=== PATIENT | female | born 1960 | race African-American/Black ===

== ENCOUNTER → 2017-09-26 | Day surgery (SDC) | payer OTHER ==
[~2017-09-26] VITALS: Ht 162.6 cm; Wt 89.8 kg
[~2017-09-26] MED LIST: ALBUTEROL0.09 MG/A1 INH; ASPI-COR81 M1 PO; BYSTOLIC5 MG PO; CARAFATE1 GM/10 ML PO; CLARITIN10 MG PO; DIOVAN 40 MG40 MG PO; ERGOCALCIFER50000 IU PO; GLUCOPHAGE500 MG PO; GLYBURIDE5 MG PO; HYDROCHLOROTH12.5 MG PO; LEVOTHYROXIN0.112 MG PO; LIPITOR 10MG10 MG PO; LORAZEPAM0.5 MG PO; METOPROLOL SUCC25 MG PO; MOMETASONE0.05 MG/Ac NASB; PLAVIX 75MG TAB75 MG PO; PRANDIN PO; PROTONIX 40MG T40 MG PO; RANEXA 500MG500 MG PO; RANITIDINE75 MG PO; SIMVASTATIN40 MG PO; SYNTHROID0.025 MG PO; THERA-D 20002000 IU PO; TYLENOL #31 TAB PO; VICTOZA6 MG/ML; VICTOZA6 MG/ML SC; VITAMIN C BUFF500 MG PO; VITAMIN D31000 IU PO; ZANTAC 150MG150 MG PO; ZOFRAN ODT4 MG PO
[2017-09-26 07:59] LABS: ABSOLUTE BASOPHIL COUNT 0 /CUMM (0.0-0.2); ABSOLUTE EOSINOPHIL COUNT 0.1 /CUMM (0.0-0.7); ABSOLUTE LYMPH COUNT 1.6 /CUMM (1.2-3.4); ABSOLUTE MONOCYTE COUNT 0.6 /CUMM (0.10-0.60); BASOPHIL % 0.4 % (0.0-2.0); EOSINOPHIL % 1.6 % (0-5); GRANULOCYTE % 71.4 % (42.2-75.2); HEMATOCRIT 34.3 % (37-47); MEAN CORPUSCULAR HGB 26.5 PG (27.0-31.0); MEAN CORPUSCULAR HGB CONC 32.9 G/DL (33.0-37.0); MEAN CORPUSCULAR VOLUME 80.7 FL (81.0-99.0); MEAN PLATELET VOLUME 8.9 FL (7.4-10.4); PLATELET COUNT 209 /CUMM (130-400); RBC DISTRIBUTION WIDTH 15.3 % (11.5-14.5); RED BLOOD CELL CT 4.24 /CUMM (4.20-5.40); WHITE BLOOD CELL COUNT 8.4 /CUMM (4.8-10.8)
--- NOTE | 2017-09-26 10:37 | Operative Report ---
Operative/Inv Procedure Report Surgery Date: 09/26/17 Name of Procedure: 1. Drainage of complex wound seroma 2. Intermediate closure, 3 cm Pre-Operative Diagnosis: Chronic seroma Post-Operative Diagnosis: Same Estimated Blood Loss: scant Surgeon/Chemical Blender: Victor Hugo BAILEY,Cordell Bloom Anesthesia: local monitored anesthesi Microbiology: Fluid for culture Operative Indication: 57-year-old woman with chronic seroma related to standard open ventral hernia repair with underlay mesh. Recent CT shows an intact hernia repair with fluid collection above the fascia. I offered her needle drainage but she requests operative drainage. Operative/Procedure Note Note: After consent she is brought to the operating room laid supine. Sedation was obtained and her abdomen was prepped and draped. The periumbilical skin was infiltrated with a cocktail local anesthesia. A curvilinear superior leaf based incision was made through pre-existing scar. Subcutaneous tissues tissues were dissected with cautery. We entered the seroma cavity which consisted of old proteinaceous blood products. A specimen sent for culture. The remainder was suction irrigated. The seroma cavity was left intact. The umbilical stock was re-created 3-0 Vicryl. Wound was then closed in 2 layers of 3-0 and 4-0 Vicryl sutures. CC: Renee Sánchez DO
== END ==
LOC: STS 02:46
PROVIDERS: Surgery
DX: L76.34 Postprocedural seroma of skin and subcutaneous tissue following other procedure (principal); T14.8XXA Other injury of unspecified body region, initial encounter; E11.65 Type 2 diabetes mellitus with hyperglycemia; E03.9 Hypothyroidism, unspecified; I10 Essential (primary) hypertension; E66.9 Obesity, unspecified; Z68.34 Body mass index [BMI] 34.0-34.9, adult; Z79.84 Long term (current) use of oral hypoglycemic drugs
CPT/HCPCS: 87070; 87075; 36415; 93005; 93010; J0131; J0690; J1100; J2250; J2405

== ENCOUNTER 2017-09-30 18:21 | Emergency (ER) | payer OTHER ==
[~2017-09-30] VITALS: Ht 167.6 cm; Wt 81.6 kg
--- NOTE | 2017-09-30 19:15 | ED GENERAL ADULT ---
History of Present Illness General Chief Complaint: General Adult Stated Complaint: HIGH BP 212/108 Source: patient, family Exam Limitations: no limitations Vital Signs & Intake/Output Vital Signs & Intake/Output Vital Signs Date Time Temp Pulse Resp B/P B/P Pulse O2 O2 Flow FiO2 Mean Ox Delivery Rate 09/30 2238 98.4 88 18 144/80 100 Room Air 10/01 2043 98.3 61 18 124/82 99 Room Air 10/01 2031 96 Room Air 09/30 1841 98.9 78 18 162/96 98 Room Air ED Intake and Output 10/01 0000 09/30 1200 Intake Total 0 Output Total Balance 0 Intake, IV 0 Patient 180 lb Weight Weight Reported by Patient Measurement Method Allergies Coded Allergies: shellfish derived (Severe, HIVES 02/13/17) valsartan (Severe, ANGIODEMA 09/25/17) patient denies allergy Egg Derived (EGG WHITE - ALLERGY TESTED 09/25/17) dapagliflozin (From [facility]) (unknown 09/25/17) hydrocodone (UPSET STOMACH 10/08/15) kiwi (itchy 09/25/17) lactase (gi 09/25/17) metformin (diahrrea 09/25/17) metoprolol (SWELLING 10/08/15) shrimp (? 02/13/17) oxycodone (UPSET STOMACH 10/08/15) Reconcile Medications Albuterol Sulfate (Albuterol Sulfate Hfa) 0.09 MG/Actuation ISMAEL 2 PUFF INH Q4- 6 PRN PRN SHORTNESS OF BREATH (Reported) 90 MCG PER PUFF Aspirin (Aspi-Cor) 81 MG CTB 1 TAB PO DAILY HEART (Reported) Atorvastatin (Atorvastatin Calcium) 10 MG TABLET 1 TAB PO DAILY CHOLESTEROL ( Reported) CHOLECALCIFEROL (VITAMIN D3) (Thera-D) 2,000 UNIT TABLET 1 TAB PO DAILY BONE HEALTH (Reported) Clopidogrel Bisulfate (Plavix) 75 MG TABLET 1 TAB PO DAILY STENT (Reported) Levothyroxine Sodium (Levothyroxine) 0.112 MG TAB 1 TAB PO DAILY HYPOTHYROID (Reported) Loratadine (Claritin) 10 MG TAB 1 TAB PO DAILY ALLERGIES (Reported) Lorazepam 0.5 MG TABLET 1 TAB PO DAILY PRN ANXIETY (Reported) Metformin Hydochloride (Glucophage) 500 MG TABLET 1 TAB PO BID DIABETES ( Reported) Mometasone Furoate (Nasonex) 0.05 MG/Actuation SPR 2 SPRAY NASB DAILY ALLERGIES (Reported) Nebivolol Hydrochloride (Bystolic) 5 MG TAB 1 TAB PO DAILY HEART (Reported) Pantoprazole Sodium (Protonix) 40 MG TABLET.DR 1 TAB PO DAILY HEARTBURN Repaglinide (Prandin 1MG TAB) 1 MG TABLET 1 TAB PO 4 TIMES/DAY DIABETES ( Reported) Triage Note: 57F S/P HERNIA SURGERY 5 DAYS AGO DEVELOPED HEADACHE YESTERDAY AND CHECKED BP TODAY AND FOUND IT TO BE 212/108. DENIES VISION CHANGES. TOOK ALL BP MEDS TODAY. BP 162/96 MANUALLY IN TRIAGE, BRACHIAL PULSE WITH REG RATE/RHYTHM. DENIES CP/SOB, SLIGHT NAUSEA. NO FOCAL NEURO DEFICITS Triage Nurses Notes Reviewed? yes Onset: Gradual Duration: constant Timing: recent history Injury Environment: home Severity: moderate Severity Numbers: 5 : No HPI: Patient is a 57 -year-old female with a past medical history of non-insulin- requiring diabetes mellitus, coronary artery disease, status post drug-eluting stents to LAD and RCA placed in 2009 ON [place], GERD, hypothyroidism, seasonal allergies/asthma who 4 days ago is status post laparoscopic drainage of a complex seroma of a ventral hernia performed by surgeon Dr. Gay patient states that for the past 2 days she's developed gradual onset of headache and nasal congestion and shortness of breath. Patient also was concerned of blood pressure and she states that "every time I get the symptoms by blood pressure is high" noted blood pressure prior to arrival was 200/100 Patient denies any fever or chills blurred vision visual acuity changes neck pain chest pain arm pain jaw pain nausea or vomiting leg swelling Hemoptysis (Zan GONZALEZ,Karl) Past History Travel History Traveled to [place] past 21 day No Medical History Any Pertinent Medical History? see below for history Neurological: NONE EENT: allergies Cardiovascular: CAD (s/p PCI x 2), hypertension, hyperlipidemia Respiratory: asthma Gastrointestinal: GERD, HERNIA REPAIR Hepatic: NONE Renal: NONE Musculoskeletal: osteoarthritis Psychiatric: anxiety Endocrine: diabetes ([id number]), hypothyroidism (status post thyroidectomy), vitamin D deficiency History of MRSA: No History of VRE: No History of CDIFF: No Tetanus Vaccine: 03/25/14 Surgical History Surgical History: appendectomy, cholecystectomy, hysterectomy (with bilateral oophorectomy), thyroidectomy Psychosocial History Who do you live with Family Services at Home None What is your primary language Estonian Tobacco Use: Never used Family History Family History, If Any: MOTHER (HTN, DM, Stroke). FATHER ( at age of 51, had DM and possibly CO). . BROTHER (CKD). Hx Contributory? No (Karl Bernard) Review of Systems Review of Systems Constitutional: Reports: no symptoms, see HPI. Denies: chills, fever. EENTM: Reports: see HPI. Respiratory: Reports: see HPI, short of breath. Denies: cough. Cardiovascular: Reports: see HPI. Denies: chest pain, palpitations, peripheral edema. GI: Reports: see HPI. Denies: abdominal pain, nausea, vomiting. Genitourinary: Reports: no symptoms. Musculoskeletal: Reports: no symptoms. Skin: Reports: no symptoms. Neurological/Psychological: Reports: see HPI, headache. Hematologic/Endocrine: Reports: no symptoms. Immunologic/Allergic: Reports: no symptoms. All Other Systems: Reviewed and Negative (Karl Bernard) Physical Exam Physical Exam General Appearance: no apparent distress, alert, comfortable Head: atraumatic Eyes: Bilateral: normal appearance, PERRL, EOMI. 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 Yes CVA/TIA Diagnosis: No Sepsis Present: No Sepsis Focused Exam Completed? No (Karl Bernard) Progress Differential Diagnoses I considered the following diagnoses in my evaluation of the patient: [ Hypertensive urgency hypertension anxiety pulmonary embolism myocardial infarction pneumothorax hemothorax pneumonia sinusitis] Initial ED EKG: normal intervals, normal p-waves, normal QRS complex, NSR 67 BPM Hand-Off Endorsed To: Palma BAILEY,Andrea Ortiz Endorsed Time: 2249 Pending: CT, EKG, Xray Comments: PATIENT: HARISH YOUNG PRESENT AGE: 57 PATIENT ACCOUNT NO: [id number] : 61 LOCATION: [facility] ORDERING PHYSICIAN: Karl GONZALEZ SERVICE DATE: 09/30/17 EXAM TYPE: CAT - CTA CHEST-PULMONARY EMBOLISM EXAMINATION: CT ANGIOGRAM OF THE CHEST WITH AND WITHOUT CONTRAST (CT PULMONARY ANGIOGRAM FOR PE) CLINICAL INFORMATION: Elevated d-dimer. Shortness of breath. COMPARISON: None TECHNIQUE: Prior to contrast administration, noncontrast localization images were obtained. Subsequently, multidetector volumetric imaging was performed from the thoracic inlet to below the diaphragms following the administration of 94 mL Optiray 320 intravenous contrast. No contrast reaction reported. Sagittal, coronal, and MIP oblique sagittal reformatted images were obtained on the CT workstation, uploaded to PACS, and reviewed. Total exam dose-length product 497 mGy-cm. FINDINGS: QUALITY OF STUDY/CONTRAST BOLUS: Satisfactory PULMONARY ARTERIES: No central or segmental pulmonary emboli. THORACIC AORTA: No aneurysm or dissection. LUNG: No consolidation suspicious for pneumonia or pulmonary edema. No dominant suspicious pulmonary nodule. PLEURA: No pleural effusion or pneumothorax. MEDIASTINUM: Normal heart size. There is coronary artery calcification. No pericardial effusion. No hilar or mediastinal lymphadenopathy. No evidence of septal bowing or right heart strain. CHEST WALL/AXILLA: No axillary or internal mammary lymphadenopathy. OSSEOUS STRUCTURES: No acute osseous abnormalities. UPPER ABDOMEN: Cholecystectomy clips. No reflux of contrast into the hepatic veins to suggest elevated right heart pressures. IMPRESSION: 1. No pulmonary embolism. 2. No evidence of pneumonia or pulmonary edema. 3. Coronary artery calcification. VTE: Negative DICTATED BY: Case Butler MD DATE/TIME DICTATED:09/30/172237 PRICING CLERK:VIDAL (Zan GONZALEZ,Karl) Plan of Care: Orders Procedure Date/time Status TROPONIN LEVEL 09/30 2329 Active EKG 09/30 2329 Active Telemetry/Cook Vegetable 09/30 1930 Active TROPONIN LEVEL 09/30 1930 Complete D-DIMER 09/30 1930 Complete COMPREHENSIVE METABOLIC PANEL 09/30 1930 Complete CBC WITHOUT DIFFERENTIAL 09/30 1930 Complete EKG 09/30 1930 Active Laboratory Tests 09/30/17 2011: Anion Gap 12, Estimated GFR > 60, BUN/Creatinine Ratio 15.0, Glucose 169 H, Calcium 9.4, Total Bilirubin 0.6, AST 29, ALT 34, Alkaline Phosphatase 58, Troponin I < 0.01, Total Protein 8.0, Albumin 4.7, Globulin 3.3, Albumin/ Globulin Ratio 1.4, D-Dimer High Sensitivty 343 H, CBC w Diff NO MAN DIFF REQ, RBC 4.69, MCV 81.4, MCH 25.7 L, MCHC 31.6 L, RDW 15.8 H, MPV 9.5, Gran % 61.1 , Lymphocytes % 25.4, Monocytes % 7.5, Eosinophils % 5.6 H, Basophils % 0.4, Absolute Granulocytes 5.7, Absolute Lymphocytes 2.4, Absolute Monocytes 0.7 H, Absolute Eosinophils 0.5, Absolute Basophils 0 Patient upon initial presentation was resting comfortably bedside patient did have elevated blood pressure however after reexamination of the patient 2049 patient's blood pressure is now normotensive recent denies any current symptoms EKG was unremarkable patient has not had chest pain symptoms Patient will receive a second set of cardiac enzymes at 0 due to past medical history of drug-eluting stents and CAD HX DISCUSSED HAND OFF WITH DR WALDROP SECOND EKG, TROPONIN PENDING. (Zan GONZALEZ,Karl) Diagnostic Imaging: Viewed by Me: CT Scan. Discussed w/RAD: CT Scan. Radiology Impression: PATIENT: HARISH YOUNG PRESENT AGE: 57 PATIENT ACCOUNT NO: [id number] : 62 LOCATION: [facility] ORDERING PHYSICIAN: Karl GONZALEZ SERVICE DATE: 09/30/17 EXAM TYPE: CAT - CTA CHEST-PULMONARY EMBOLISM EXAMINATION: CT ANGIOGRAM OF THE CHEST WITH AND WITHOUT CONTRAST (CT PULMONARY ANGIOGRAM FOR PE) CLINICAL INFORMATION: Elevated d-dimer. Shortness of breath. COMPARISON: None TECHNIQUE: Prior to contrast administration, noncontrast localization images were obtained. Subsequently, multidetector volumetric imaging was performed from the thoracic inlet to below the diaphragms following the administration of 94 mL Optiray 320 intravenous contrast. No contrast reaction reported. Sagittal, coronal, and MIP oblique sagittal reformatted images were obtained on the CT workstation, uploaded to PACS, and reviewed. Total exam dose-length product 497 mGy-cm. FINDINGS: QUALITY OF STUDY/CONTRAST BOLUS: Satisfactory PULMONARY ARTERIES: No central or segmental pulmonary emboli. THORACIC AORTA: No aneurysm or dissection. LUNG: No consolidation suspicious for pneumonia or pulmonary edema. No dominant suspicious pulmonary nodule. PLEURA: No pleural effusion or pneumothorax. MEDIASTINUM: Normal heart size. There is coronary artery calcification. No pericardial effusion. No hilar or mediastinal lymphadenopathy. No evidence of septal bowing or right heart strain. CHEST WALL/AXILLA: No axillary or internal mammary lymphadenopathy. OSSEOUS STRUCTURES: No acute osseous abnormalities. UPPER ABDOMEN: Cholecystectomy clips. No reflux of contrast into the hepatic veins to suggest elevated right heart pressures. IMPRESSION: 1. No pulmonary embolism. 2. No evidence of pneumonia or pulmonary edema. 3. Coronary artery calcification. VTE: Negative DICTATED BY: Case Butler MD DATE/TIME DICTATED: 09/30/172237 PRICING CLERK:VIDAL DATE/TIME TRANSCRIBED:09/30/172237 CONFIDENTIAL, DO NOT COPY WITHOUT APPROPRIATE AUTHORIZATION. <Electronically signed in Other Vendor System> SIGNED BY: Case Butler MD 09/30/17 1045 (Andrea Waldrop MD) Departure Departure Disposition: HOME OR SELF CARE Condition: Stable Clinical Impression Primary Impression: Hypertension Secondary Impressions: Headache Referrals: Renee Sánchez DO (PCP/Family) Additional Instructions: As discussed follow-up with your primary care doctor and your track helper next week for further evaluation treatment, continue home medications as directed and continue to monitor blood pressure. If symptoms worsen or if YOU develop new concerning symptoms return to emergency room Please discontinue temporarily of the metformin for 2 days due to the CT scan that YOU received in the emergency room Departure Forms: Customer Survey General Discharge Information (Karl Bernard) PA/GROUNDSMAN Co-Sign Statement Statement: ED Attending supervision documentation- [x] I saw and evaluated the patient. I have also reviewed all the pertinent lab results and diagnostic results. I agree with the findings and the plan of care as documented in the PA's/GROUNDSMAN's documentation. 10/01/17, 1:05am... pt feeling comfortable in the ED. benign exam. ct scan neg for PE, trop/ekg benign x 2... pt safe for discharge... close follow up advised. [] I have reviewed the ED Record and agree with the PA's/GROUNDSMAN's documentation. [] Additions or exceptions (if any) to the PAs/GROUNDSMAN's note and plan are summarized below: [] (Palma BAILEY,Andrea Ortiz) Critical Care Note Critical Care Note Critical Care Time: non-applicable (Karl Bernard) (Karl Bernard)
[2017-09-30 20:49] LABS: ABSOLUTE BASOPHIL COUNT 0 /CUMM (0.0-0.2); ABSOLUTE EOSINOPHIL COUNT 0.5 /CUMM (0.0-0.7); ABSOLUTE GRANULOCYTE CT 5.7 /CUMM (1.4-6.5); ABSOLUTE LYMPH COUNT 2.4 /CUMM (1.2-3.4); ABSOLUTE MONOCYTE COUNT 0.7 /CUMM (0.10-0.60); BASOPHIL % 0.4 % (0.0-2.0); EOSINOPHIL % 5.6 % (0-5); GRANULOCYTE % 61.1 % (42.2-75.2); HEMATOCRIT 38.2 % (37-47); MEAN CORPUSCULAR HGB 25.7 PG (27.0-31.0); MEAN CORPUSCULAR HGB CONC 31.6 G/DL (33.0-37.0); MEAN CORPUSCULAR VOLUME 81.4 FL (81.0-99.0); MEAN PLATELET VOLUME 9.5 FL (7.4-10.4); PLATELET COUNT 205 /CUMM (130-400); RBC DISTRIBUTION WIDTH 15.8 % (11.5-14.5); RED BLOOD CELL CT 4.69 /CUMM (4.20-5.40); WHITE BLOOD CELL COUNT 9.4 /CUMM (4.8-10.8)
[2017-09-30 22:39] VITALS: BP 144/80
--- NOTE | 2017-09-30 22:51 | CT SCAN REPORT ---
EXAMINATION: CT ANGIOGRAM OF THE CHEST WITH AND WITHOUT CONTRAST (CT PULMONARY ANGIOGRAM FOR PE) CLINICAL INFORMATION: Elevated d-dimer. Shortness of breath. COMPARISON: None TECHNIQUE: Prior to contrast administration, noncontrast localization images were obtained. Subsequently, multidetector volumetric imaging was performed from the thoracic inlet to below the diaphragms following the administration of 94 mL Optiray 320 intravenous contrast. No contrast reaction reported. Sagittal, coronal, and MIP oblique sagittal reformatted images were obtained on the CT workstation, uploaded to PACS, and reviewed. Total exam dose-length product 497 mGy-cm. FINDINGS: QUALITY OF STUDY/CONTRAST BOLUS: Satisfactory PULMONARY ARTERIES: No central or segmental pulmonary emboli. THORACIC AORTA: No aneurysm or dissection. LUNG: No consolidation suspicious for pneumonia or pulmonary edema. No dominant suspicious pulmonary nodule. PLEURA: No pleural effusion or pneumothorax. MEDIASTINUM: Normal heart size. There is coronary artery calcification. No pericardial effusion. No hilar or mediastinal lymphadenopathy. No evidence of septal bowing or right heart strain. CHEST WALL/AXILLA: No axillary or internal mammary lymphadenopathy. OSSEOUS STRUCTURES: No acute osseous abnormalities. UPPER ABDOMEN: Cholecystectomy clips. No reflux of contrast into the hepatic veins to suggest elevated right heart pressures. IMPRESSION: 1. No pulmonary embolism. 2. No evidence of pneumonia or pulmonary edema. 3. Coronary artery calcification. VTE: Negative
== END 2017-10-01 01:08 ==
LOC: ERH 18:21
PROVIDERS: Physician Assistant
DX: I10 Essential (primary) hypertension (principal); R51 Headache
CPT/HCPCS: 93005; 93010